=== PATIENT | male | born 1965 | race Caucasian/White ===

== ENCOUNTER → 2017-03-21 | Outpatient (CLI) | payer BC, SELFPAY ==
--- NOTE | 2017-03-22 10:45 | RAD ---
EXAM DESCRIPTION: Pelvis CLINICAL HISTORY: HIP PAIN COMPARISON: None. TECHNIQUE: AP pelvis FINDINGS: The bony pelvis is intact. No fracturing is detected. The proximal femurs are normal in appearance. No pathologic calcifications are observed. IMPRESSION: Normal pelvis Electronically signed by: Ivan Patel MD 03/22/2017 10:43 AM CDT
--- NOTE | 2017-03-22 10:46 | RAD ---
EXAM DESCRIPTION: Knee,Left Complete CLINICAL HISTORY: KNEE PAIN COMPARISON: None. TECHNIQUE: 4 views left FINDINGS: Lateral femoral osteophyte formation is observed. Mild medial femoral osteophyte formation is observed. There is loss of lateral joint space. Patellofemoral joint arthritis is noted. No fracturing is detected. No significant joint effusion is seen. IMPRESSION: Degenerative changes are observed most pronounced in the lateral joint compartment. Electronically signed by: Ivan Patel MD 03/22/2017 10:45 AM CDT
== END ==
LOC: RAD 09:12
PROVIDERS: ATTEND Orthopaedic Surgery
DX: M25.562 Pain in left knee (principal); M25.552 Pain in left hip

== ENCOUNTER → 2019-09-24 | Outpatient (CLI) | payer BC ==
--- NOTE | 2019-09-24 13:31 | RAD ---
4 radiographs left knee Indication: KNEE PAIN Comparison: March 21, 2017 Impression: Moderate to severe tricompartmental osteoarthritis with joint space narrowing and joint line osteophyte formation. No acute fracture. Tiny effusion. Electronically signed by: Pavel Stephens MD 09/24/2019 1:30 PM [facility]
--- NOTE | 2019-09-24 13:31 | RAD ---
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 Prominent superior lateral acetabular osteophyte ridge on the left Normal mineralization of the femoral head No fracture of the proximal femora or pelvis Electronically signed by: Yobani Elmore MD 09/24/2019 1:30 PM [facility]
== END ==
LOC: RAD 09:03
PROVIDERS: ATTEND Orthopaedic Surgery
DX: M17.12 Unilateral primary osteoarthritis, left knee (principal); M25.752 Osteophyte, left hip; M24.852 Other specific joint derangements of left hip, not elsewhere classified

== ENCOUNTER → 2020-08-01 | Outpatient (CLI) | payer BC ==
--- NOTE | 2020-08-01 15:04 | RAD ---
EXAM DESCRIPTION: Chest,2 Views CLINICAL HISTORY: PRE OP COMPARISON: None TECHNIQUE: PA/lateral FINDINGS: The lungs are clear. No focal consolidation, pneumothorax or pleural effusion. The heart is normal in size. No acute osseous abnormality. IMPRESSION: 1. No acute cardiopulmonary abnormality. Electronically signed by: Candido Bauer DO 08/01/2020 3:03 PM [facility]
== END ==
LOC: LAB.O 11:00
PROVIDERS: ATTEND Orthopaedic Surgery
DX: Z01.818 Encounter for other preprocedural examination (principal)

== ENCOUNTER 2020-08-10 05:29 | Day surgery (SDC) | payer BC ==
[2020-08-10] MEDS ORDERED: SODIUM CHL 0.9% 100ML MINI-BAG 100 ML IVPB ONE (06:26)
[2020-08-10] MEDS ORDERED: ceFAZolin SODIUM 1 GM VIAL ONE ×2 (06:27→08:08)
[2020-08-10] MEDS ORDERED: LACTATED RINGERS 1,000 ML ONE (06:27)
[2020-08-10] MEDS ORDERED: VANCOMYCIN HCL INJ 1,000 MG VIAL IVPB ONE ×3 (08:08→13:22)
[2020-08-10] MEDS ORDERED: BUPIVACAINE 0.5% 30 ML VIAL INJ ONE ×2 (08:08→11:10)
[2020-08-10] MEDS ORDERED: BUPIVACAINE LIPOSOME 13.3 MG/ML VIAL INJ ONE ×2 (08:09→11:10)
[2020-08-10] MEDS ORDERED: PROPOFOL 200 MG/20 ML VIAL IV ONE (10:00)
[2020-08-10] MEDS ORDERED: ceFAZolin SODIUM 1 GM VIAL IVPB ONE (10:00)
[2020-08-10] MEDS ORDERED: DEXAMETHASONE INJ 10 MG/ML VIAL IV ONE (10:00)
[2020-08-10] MEDS ORDERED: MAGNESIUM SULFATE INJ 1 GM/2 ML VIAL IVPB ONE (10:00)
[2020-08-10] MEDS ORDERED: KETOROLAC TROMETHAMINE INJ 30 MG/ML VIAL IV ONE (10:00)
[2020-08-10] MEDS ORDERED: ceFAZolin SODIUM 1 GM VIAL IRRIG ONE (11:09)
[2020-08-10] MEDS ORDERED: MIDAZOLAM INJ 2 MG/2 ML VIAL ONE (12:16)
[2020-08-10] MEDS ORDERED: fentaNYL CITRATE INJ 50 MCG/ML 2 ML AMP ONE (12:16)
[2020-08-10] MEDS ORDERED: DEXMEDETOMIDINE HCL 200 MCG/2 ML INJ IV ONE (12:16)
[2020-08-10] MEDS ORDERED: FAMOTIDINE INJ 10 MG/ML VIAL IV ONE (12:16)
[2020-08-10 14:04] VITALS: TEMP 97.1
[2020-08-10 15:04] VITALS: BP 150/99; O2SAT 99
--- NOTE | 2020-08-17 08:41 | OP ---
DATE OF PROCEDURE: 08/10/20 PREOPERATIVE DIAGNOSIS: 1. Osteoarthritis. 2. Meniscal tear. POSTOPERATIVE DIAGNOSIS: 1. Osteoarthritis. 2. Degenerative meniscal tearing. PROCEDURE: 1. Debridement/chondroplasty. 2. Partial meniscectomy. SURGEON: Ricardo Rouse MD. COMPUTER TECHNICIAN: Philip Gonzales CST, SA-C. ANESTHESIA: General anesthesia. COMPLICATIONS: None. FINDINGS: 1. Advanced arthritis of the medial compartment. 2. Normal ACL, normal PCL. 3. Advanced arthritis of the lateral compartment with degenerative tearing of the meniscus. 4. Normal lateral gutter. 5. Normal suprapatellar pouch. 6. Advanced arthritis of the patellofemoral joint. 7. Normal medial gutter. INDICATION: Rivera has a history of severe knee pain that has been refractory to conservative measures. Because of this, he has had difficulty with his daily activities. As a result, we discussed his options. After discussing the risks, benefits and alternatives to operative therapy, the patient has given informed consent for the above procedure. PROCEDURE: The patient was brought to the Operating Room and placed in supine position. General anesthesia was induced and the patient's leg was sterilely prepped and draped. Following prepping and draping, standard anteromedial and anterolateral portals were established. Diagnostic arthroscopy was carried out with the above findings. Once diagnostic arthroscopy had been completed, the chondral surfaces of the aforementioned compartments were debrided using a 3.5 mm full radius shaver. The lateral meniscus was debrided with that same shaver. The knee was thoroughly irrigated and drained. The wounds were closed with Nylon suture. Sterile dressings were placed. The patient was awoken from anesthesia and taken to Recovery. POSTOPERATIVE PLAN: The patient will be partial weightbearing and will followup with us in two days. #[id number] [facility]
== END 2020-08-10 14:50 | disposition home or self-care (01) ==
LOC: AMB 05:29
PROVIDERS: ATTEND Orthopaedic Surgery
DX: M17.12 Unilateral primary osteoarthritis, left knee (principal); M23.201 Derangement of unspecified lateral meniscus due to old tear or injury, left knee; M23.204 Derangement of unspecified medial meniscus due to old tear or injury, left knee; Z79.899 Other long term (current) drug therapy
CPT/HCPCS: 01400; 29881; 80307; J0690; J1100; J1885; J2250; J3010; J3370; J3475; J3490; J7050; J7120